=== PATIENT | male | born 1975 | race Two or more races ===

== ENCOUNTER 2020-09-20 16:15 | Inpatient (IN) | payer MEDICAID, OTHER ==
[~2020-09-20] VITALS: Ht 190.5 cm; Wt 91.3 kg
[2020-09-20] MEDS ORDERED: SODIUM CHLORIDE 0.9% 1,000 ML IV ONE ×2 (16:45)
[2020-09-20 17:23] LABS: Basophils # (auto) 0 10 ^3/uL (0-0.2); Basophils % (auto) 0.3 % (0.0-2.0); Eosinophils # (auto) 0.1 10 ^3/uL (0-0.8); Eosinophils % (auto) 1.5 % (0.0-7.0); Hematocrit 47.6 % (41.0-53.0); Hemoglobin 17.2 g/dL (13.5-17.5); Lymphocytes # (auto) 2.3 10 ^3/uL (0.4-5.4); Lymphocytes % (auto) 23.2 % (10.0-50.0); Mean Corpuscular Hemoglobin 32.8 pg (28.0-32.0); Mean Corpuscular Hgb Conc. 36.2 g/dL (32.0-36.0); Mean Corpuscular Volume 90.6 fL (80.0-100.0); Monocytes # (auto) 0.9 10 ^3/uL (0-1.3); Monocytes % (auto) 9.3 % (0.0-12.0); Neutrophils # (auto) 6.5 10 ^3/uL (1.6-8.6); Neutrophils % (auto) 65.7 % (37.0-80.0); Nucleated Red Blood Cells % 0.1 %; Red Blood Cells 5.25 10^6/uL (4.5-5.90); Red Cell Distribution Width 13.3 % (11.8-14.3); White Blood Cell 9.9 10^3/uL (4.4-10.8)
[2020-09-20] MEDS ORDERED: PIPERACILLIN-TAZOB 3.375GM 100 ML IV ONE (17:30)
[2020-09-20 17:38] LABS: Alanine Aminotransferase 28 U/L (16-61); Albumin 3.8 g/dL (3.4-5.0); Anion Gap 3 (5-15); Blood Urea Nitrogen 11 mg/dL (7-18); Calcium 10.6 mg/dL (8.5-10.1); Carbon Dioxide 30 mmol/L (21-32); Chloride 105 mmol/L (98-107); Glucose 92 mg/dL (74-106); Potassium 4.3 mmol/L (3.5-5.1); Sodium 138 mmol/L (136-145)
[2020-09-20 17:43] LABS: Alkaline Phosphatase 83 U/L (45-117); Aspartate Aminotransferase 17 U/L (15-37); BUN/Creatinine Ratio 11.7; Bilirubin, Total 0.8 mg/dL (0.2-1.0); GFR African American 112 mL/min; GFR Non-African American 93 mL/min
[2020-09-20] MEDS ORDERED: ONDANSETRON HCL 4 MG/2 ML VIAL IV PRN (18:30)
[2020-09-20] MEDS ORDERED: MORPHINE SULF INJ 2 MG/ML SYRINGE 1ML IV PRN ×2 (18:30)
[2020-09-20] MEDS ORDERED: NITROGLYCERIN 0.4 MG SL TAB SL PRN (18:30)
[2020-09-20] MEDS ORDERED: hydrALAZINE HCL 20 MG/ML VL IV PRN (18:30)
[2020-09-20 18:54] LABS: INR 0.92 (0.9-1.15); Partial Thromboplastin Time 26.7 sec (23.0-31.2)
[2020-09-20] MEDS: D5W/SOD CHLO 0.9% 1,000 ML IV SCH (20:30)
[2020-09-20] MEDS ORDERED: metroNIDAZOLE 500MG/100ML 100 ML IV SCH (22:00)
[2020-09-21] VITALS (7 sets, daily range): BP systolic 105–127; BP diastolic 63–83
[2020-09-21] MEDS: D5W/SOD CHLO 0.9% 1,000 ML IV SCH ×3 (00:08→14:30)
[2020-09-21] MEDS ORDERED: LISI-275 PO (00:32)
[2020-09-21] MEDS: metroNIDAZOLE 500MG/100ML 100 ML IV SCH ×3 (08:01→23:46)
[2020-09-21] MEDS: cefTRIAXone 1GM/50ML D5W 50 ML IV SCH (09:04)
[2020-09-21] MEDS: PANTOPRAZOLE 40 MG/10 ML VIAL INJ IV SCH (09:05)
[2020-09-21] MEDS ORDERED: GASTROGRAFIN 120 ML SOL ONE (10:39)
[2020-09-21] MEDS ORDERED: FOLIC ACID 1 MG, MULTIPLE VITAMIN 10 ML, MAGNESIUM SULF SDV 50% 8 MEQ, THIAMINE INJ 100... INJ SCH ×5 (12:00)
[2020-09-22] MEDS: D5W/SOD CHLO 0.9% 1,000 ML IV SCH (00:30)
[2020-09-22 05:00] VITALS: BP 126/74
[2020-09-22] MEDS: PANTOPRAZOLE 40 MG/10 ML VIAL INJ IV SCH (08:23)
[2020-09-22] MEDS: metroNIDAZOLE 500MG/100ML 100 ML IV SCH (08:23)
[2020-09-22 09:00] VITALS: BP 129/79
[2020-09-22] MEDS: cefTRIAXone 1GM/50ML D5W 50 ML IV SCH (09:00)
[2020-09-22 13:00] VITALS: BP 133/98
== END 2020-09-22 14:32 | disposition home or self-care (01) | DRG 247 ==
LOC: ER 16:15 → OVERFLOW 18:20 → WEST WING 22:30
PROVIDERS: ADMIT Nurse Practitioner Acute Care; ATTEND Nurse Practitioner
DX: K56.609 Unspecified intestinal obstruction, unspecified as to partial versus complete obstruction (principal); F10.20 Alcohol dependence, uncomplicated; I10 Essential (primary) hypertension; Z20.822 Contact with and (suspected) exposure to COVID-19; Z83.3 Family history of diabetes mellitus; Z83.6 Family history of other diseases of the respiratory system; Z82.41 Family history of sudden cardiac death; Z79.899 Other long term (current) drug therapy
CPT/HCPCS: 36415; 74176; 74250; 80053; 83605; 83735; 84484; 85025; 85610; 85730; 87040; 87426; 96361; 96365; 96375; C9113; G0378; J0696; J2405; J2543; J3490; J7042